=== PATIENT | female | born 1965 ===

== ENCOUNTER 2017-03-20 19:40 | Emergency (ER) | payer OTHER ==
[2017-03-20 19:50] VITALS: PULSE 107; RESP 18; TEMP 98.6; O2SAT 99
--- NOTE | 2017-03-20 20:56 | ED PDOC ---
HPI: Skin/Bite Injury Time Seen by Provider: 03/20/17 20:27 Chief Complaint (Nursing): Bite Chief Complaint (Provider): Dog bite, right knee History Per: Patient History/Exam Limitations: no limitations Onset/Duration Of Symptoms: Hrs Current Symptoms Are (Timing): Still Present Quality Of Symptoms: Painful Severity: Mild Pain Scale Rating Of: 2 Additional Complaint(s): Unknown tetanus. Dog from her building and is UTD with vaccines. Past Medical History Reviewed: Historical Data, Nursing Documentation, Vital Signs Vital Signs: Last Vital Signs Temp 98.6 F 03/20/17 19:47 Pulse 107 H 03/20/17 19:47 Resp 18 03/20/17 19:47 BP 181/102 H 03/20/17 19:47 Pulse Ox 99 03/20/17 19:47 - Medical History PMH: No Chronic Diseases - Surgical History Surgical History: No Surg Hx - Family History Family History: States: No Known Family Hx - Living Arrangements Living Arrangements: With Family - Social History Current smoker - smoking cessation education provided: No - Home Medications Home Medications: Ambulatory Orders Medication Instructions Recorded Amoxicillin/Clavulanate [Augmentin 1 tab PO BID #20 tab 03/20/17 875 MG-125 MG] - Allergies Allergies/Adverse Reactions: Allergies Allergy/AdvReac Type Severity Reaction Status Date / Time No Known Allergies Allergy Verified 03/20/17 19:47 Review of Systems ROS Statement: Except As Marked, All Systems Reviewed And Found Negative Constitutional: Negative for: Fever, Chills Respiratory: Negative for: Cough, Shortness of Breath Skin: Positive for: Other Physical Exam - Reviewed Nursing Documentation Reviewed: Yes Vital Signs Reviewed: Yes - Physical Exam Appears: Positive for: Well, Non-toxic, No Acute Distress Head Exam: Positive for: ATRAUMATIC, NORMAL INSPECTION, NORMOCEPHALIC Skin: Positive for: Warm. Negative for: Normal Color (2 small abrasion, right knee) Eye Exam: Positive for: Normal appearance ENT: Positive for: Normal ENT Inspection Neck: Positive for: Normal, Painless ROM Cardiovascular/Chest: Positive for: Regular Rate, Rhythm Respiratory: Positive for: CNT, Normal Breath Sounds Gastrointestinal/Abdominal: Positive for: Normal Exam, Bowel Sounds, Soft Back: Positive for: Normal Inspection Extremity: Positive for: Normal ROM Neurologic/Psych: Positive for: Alert, Oriented - ECG O2 Sat by Pulse Oximetry: 99 Disposition - Clinical Impression Clinical Impression: Dog bite, Abrasion - Patient ED Disposition Is Patient to be Admitted: No Counseled Patient/Family Regarding: Diagnosis, Need For Followup, Rx Given - Disposition Disposition: Routine/Home Disposition Time: 20:56 Condition: GOOD Prescriptions: Amoxicillin/Clavulanate [Augmentin 875 MG-125 MG] 1 tab PO BID #20 tab Instructions: Abrasion (ED)
[2017-03-20 21:31] VITALS: BP 156/97
== END 2017-03-20 21:37 | disposition home or self-care (01) ==
LOC: H.ER 19:40
DX: S80.211A Abrasion, right knee, initial encounter (principal); W54.0XXA Bitten by dog, initial encounter; Y92.89 Other specified places as the place of occurrence of the external cause